=== PATIENT | female | born 1980 | race Caucasian/White ===

== ENCOUNTER 2017-11-12 01:13 | Emergency (ER) | payer BC ==
[~2017-11-12] VITALS: Ht 162.6 cm; Wt 54.9 kg
[~2017-11-12 01:13] MED LIST: FLEXERIL10 MG PO; IBUPROFEN600 MG PO; MOTRIN800 MG PO; NAPROSYN500 MG PO; PERCOCET 5/31 TABLET PO; VALIUM2 MG PO; ZOLPIDEM TART6.25 MG PO
[2017-11-12] MEDS ORDERED: KEFLEX500 MG PO (02:27)
[2017-11-12] MEDS ORDERED: NAPROSYN500 MG PO (02:35)
[2017-11-12 02:51] VITALS: BP 131/99
[2017-11-12] MEDS ORDERED: PEN-VEE K,VEET500 MG PO (14:19)
[2017-11-12] MEDS ORDERED: NORCO 5/3251 TABLET PO (14:19)
== END 2017-11-12 02:54 | disposition home or self-care (01) ==
LOC: EME 01:13
DX: S00.83XA Contusion of other part of head, initial encounter (principal); S70.02XA Contusion of left hip, initial encounter; S02.5XXA Fracture of tooth (traumatic), initial encounter for closed fracture; Y04.2XXA Assault by strike against or bumped into by another person, initial encounter; F41.9 Anxiety disorder, unspecified; Z88.2 Allergy status to sulfonamides
CPT/HCPCS: 70450; 70486; 73502

== ENCOUNTER 2017-11-12 12:55 | Emergency (ER) | payer BC ==
[~2017-11-12] VITALS: Ht 162.6 cm; Wt 53.9 kg
[~2017-11-12 12:55] MED LIST changes: +KEFLEX500 MG PO
[2017-11-12] MEDS ORDERED: PEN-VEE K,VEET500 MG PO (14:19)
[2017-11-12] MEDS ORDERED: NORCO 5/3251 TABLET PO (14:19)
[2017-11-12 14:35] VITALS: BP 114/78
== END 2017-11-12 14:36 | disposition home or self-care (01) ==
LOC: EME 12:55
PROC: 3E0T3BZ Introduction of Anesthetic Agent into Peripheral Nerves and Plexi, Percutaneous Approach (ICD-10-PCS; principal; 2017-11-12)
DX: S02.5XXA Fracture of tooth (traumatic), initial encounter for closed fracture (principal); S70.12XA Contusion of left thigh, initial encounter; T74.11XA Adult physical abuse, confirmed, initial encounter; Y04.2XXA Assault by strike against or bumped into by another person, initial encounter; Y07.01 Husband, perpetrator of maltreatment and neglect; G47.00 Insomnia, unspecified; Z88.2 Allergy status to sulfonamides
CPT/HCPCS: S0020